=== PATIENT | male | born 1970 | race Caucasian/White ===

== ENCOUNTER 2020-11-05 22:42 | Emergency (ER) | payer SELFPAY ==
--- NOTE | ~2020-11-05 | XR_ITS ---
EXAMINATION: XR hand LT min 3V INDICATION: Left hand and third finger pain TECHNIQUE: Three views of the left hand are obtained on four radiographs. COMPARISON: 05/10/2019 FINDINGS: There is no fracture, dislocation, or subluxation. The bones and joint spaces are normal. T here is mild soft tissue swelling of the third finger. IMPRESSION: 1. Soft tissue swelling of the third finger without underlying osseous abnormality identified. Reviewed, dictated and finalized at location [facility] [employer] [facility] IMPRESSION: 1. Soft tissue swelling of the third finger without underlying osseous abnormal ity identified.
[2020-11-05 22:48] VITALS: BP 145/95; PULSE 88; RESP 16; TEMP 36.8; O2SAT 97
--- NOTE | 2020-11-06 01:27 | ED.GENADULT ---
HPI - General Adult General Chief complaint: Unspecified Stated complaint: Multiple complaints Time Seen by Provider: 11/05/20 23:13 History of Present Illness HPI narrative: Patient is a 50-year-old male who presents ER with 2 concerns. First concern is that he has an injury to his left third digit that prevents him from making a full fist. He has a scab over his hand and he reports he scraped it on something several days ago. There is no redness or drainage. No fevers or chills or sweats. No lymphangitic streaking. He also reports that he is concerned that he may have parasites that are coming out of his eyes. He notes this over the medial portion of his eyes. Has not had this issue before. Denies drug use. Related Data Allergies Allergy/AdvReac Type Severity Reaction Status Date / Time Penicillins Allergy Unknown Unknown Verified 05/19/19 14:02 Review of Systems Review of Systems: All systems reviewed & are unremarkable except as noted in HPI and below Constitutional: Constitutional: Denies chills and Denies fever(s) Eyes: Eyes: Denies change in vision, Denies dry eyes and Denies itchy eyes Musculoskeletal: Musculoskeletal: Denies arthralgias and Denies joint swelling Comments: Decreased range of motion left third digit. PMFSH Past Medical History Medical History (Updated 11/06/20 @ 01:32 by Dennis Barnett MD) Healthy adult male Surgical History Surgical History (Updated 11/06/20 @ 01:29 by Dennis Barnett MD) S/P foot surgery, left Social History Social History Smoking status: Current every day smoker Alcohol intake: never Exam Narrative: Exam Narrative: GENERAL: Well-appearing, well-nourished, and in no acute distress. HEAD: Normocephalic, atraumatic. EYES: PERRL and EOMI. Normal conjunctiva. EXTREMITIES: Focused assessment of the left hand reveals a scab over the PIP joint of the third digit. Large callus over the palmar aspect of the same finger. No redness or streaking. No drainage or warmth. SKIN: Warm, dry, no rash. NEURO: Alert and oriented x3. PSYCH: Normal mood and affect. Course Course Emergency Course: Suspect patient thinks parasites are coming out of his tear ducts which appear normal. Seems to have normal mentation outside of this. No evidence of infection no evidence of trauma on x-ray. Suspect limited range of motion is due to large callus and scabbing of the finger. Vital Signs Vital signs: Vital Signs Temperature 98.2 F 11/05/20 22:48 Pulse Rate 88 11/05/20 22:48 Respiratory Rate 16 11/05/20 22:48 Blood Pressure 145/95 H 11/05/20 22:48 Pulse Oximetry 97 11/05/20 22:48 Temperature 98.2 F 11/05/20 22:48 Pulse Rate 88 11/05/20 22:48 Respiratory Rate 16 11/05/20 22:48 Blood Pressure 145/95 H 11/05/20 22:48 Pulse Oximetry 97 11/05/20 22:48 Medical Decision Making Vital Signs Vital Signs: Vital Signs Temperature 98.2 F 11/05/20 22:48 Pulse Rate 88 11/05/20 22:48 Respiratory Rate 16 11/05/20 22:48 Blood Pressure 145/95 H 11/05/20 22:48 Pulse Oximetry 97 11/05/20 22:48 Temperature 98.2 F 11/05/20 22:48 Pulse Rate 88 11/05/20 22:48 Respiratory Rate 16 11/05/20 22:48 Blood Pressure 145/95 H 11/05/20 22:48 Pulse Oximetry 97 11/05/20 22:48 Imaging Data My impression: X-ray hand left: Normal. Discharge Plan Discharge Clinical Impression: Finger pain Patient Disposition: Home, Self-Care Condition: Stable Additional Instructions: You appear to have a scab on your finger that is limiting your range of motion. There is no evidence of infection or fracture. Return to ER if you have fever over 100.4 ?F, there is pus draining out of your wound, or you have additional concerns. Follow-up/Referrals: Maxwell Gallardo MD [Physician] - 1 Week PHYSICIAN,LOAN CONSULTANT [Primary Care Provider] -
--- NOTE | 2020-11-06 01:39 | PC.NURSE ---
pt seen at intake desk by this rn. he states hes going out to smoke a cigarette and that he would be back for his d/c papers. this rn informed idalia estevez.
== END 2020-11-06 01:44 | disposition home or self-care (01) ==
PROVIDERS: Emergency Provider Emergency Medicine
DX: M79.645 Pain in left finger(s) (principal); F17.200 Nicotine dependence, unspecified, uncomplicated; L84 Corns and callosities
CPT/HCPCS: 73130; 99283

== ENCOUNTER 2023-01-25 14:33 | Emergency (ER) | payer OTHER, SELFPAY ==
[2023-01-25 14:43] VITALS: BP 112/77; PULSE 82; RESP 12; TEMP 36.5; O2SAT 98
--- NOTE | 2023-01-25 15:26 | ED.SKABFB ---
HPI - Skin/Abscess/Foreign Bdy General Chief complaint: Skin/Abscess/Foreign Body Stated complaint: Rash on Feet Time Seen by Provider: 01/25/23 15:20 Source: patient, RN notes reviewed and old records reviewed Mode of arrival: ambulatory Limitations: no limitations History of Present Illness HPI narrative: 52-year-old male who presents to [facility] with complaints of red rash on his feet that has spread to his arms and hand and face for the past 2-3 days that is itchy. He states also he has lump on right great toe where nail is growing back. 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 Patient states he has applied Neosporin to rash areas. MD complaint: rash Onset (ago): day(s) (2-3 days) Severity: mild Treatments prior to arrival: OTC topical medication Related Data Allergies Allergy/AdvReac Type Severity Reaction Status Date / Time Penicillins Allergy Unknown Unknown Verified 01/25/23 14:35 Review of Systems Review of Systems: CONSTITUTIONAL: Denies fever, chills, or sweats. CARDIOVASCULAR: Denies chest pain, palpitations, or edema. RESPIRATORY: Denies cough or dyspnea.at present time SKIN: Reports red rash to feet that has spread to arms and hands and face some crusting noted to center of some of lesions MUSCULOSKELETAL : Denies joint pain or myalgia. NEUROLOGIC: Denies headache, numbness, or weakness. All systems reviewed & are unremarkable except as noted in HPI and below PMFSH Past Medical History Medical History (Updated 01/28/23 @ 06:23 by Madeline Keen NP) Healthy adult male Surgical History Surgical History (Updated 11/06/20 @ 01:29 by Dennis Barnett MD) S/P foot surgery, left Social History Social History (Updated 01/28/23 @ 06:15 by Madeline Keen NP) Smoking packs per day: 0.5 Smoking cigarettes per day: 10.0 Years smoked: 40 Smoking pack-years: 20.00 Smoking status: Current every day smoker Tobacco type: cigarettes Alcohol intake: current Alcohol use details: weekends Substance use: current Substance use type: marijuana Gender identity (if verbalized by the patient): Male Comments At time of signature, agree with nursing past medical, surgical, social and family history. There is no relevant family history pertinent to the presenting complaint Exam Narrative: GENERAL: Well-appearing, well-nourished, and in no acute distress. HEAD: Normocephalic, atraumatic. EYES: PERRLA, conjunctivae clear, and EOMI. ENT: Mucous membranes moist. Oropharynx without edema, erythema or lesions. NECK: Supple. No lymphadenopathy CHEST: Clear to auscultation. No respiratory distress.SAO2 98% on room air HEART: Regular rate and rhythm. SKIN: Warm, dry.? Patches of red rash on feet arms hand and some on face is itchy, some crusting noted on rashes NEURO:? Alert and oriented x3. PSYCH: Normal mood and affect Course Course Emergency Course: Patient is aware of diagnosis, understands and agrees to treatment plan.? Anticipatory guidance given.? Patient agrees to follow-up as directed and is aware of reasons to seek care at the emergency department. Portions of this record may have been created with voice recognition software Level of Care: Express Care Visit Vital Signs Vital signs: Vital Signs Temperature 36.5 C 01/25/23 14:43 Pulse Rate 82 01/25/23 14:43 Respiratory Rate 12 01/25/23 14:43 Blood Pressure 112/77 01/25/23 14:43 Pulse Oximetry 98 01/25/23 14:43 Oxygen Delivery Room Air 01/25/23 14:43 Temperature 36.5 C 01/25/23 14:43 Pulse Rate 82 01/25/23 14:43 Respiratory Rate 12 01/25/23 14:43 Blood Pressure 112/77 01/25/23 14:43 Pulse Oximetry 98 01/25/23 14:43 Oxygen Delivery Room Air 01/25/23 14:43 Reviewed MDM - Skin/Abscess/Foreign Bdy MDM Narrative Medical decision making narrative: Does
== END 2023-01-25 15:50 | disposition home or self-care (01) ==
PROVIDERS: Emergency Provider Registered Nurse
DX: L25.9 Unspecified contact dermatitis, unspecified cause (principal); F17.210 Nicotine dependence, cigarettes, uncomplicated; F12.90 Cannabis use, unspecified, uncomplicated
CPT/HCPCS: 99213; G0463

== ENCOUNTER 2023-10-07 13:42 | Emergency (ER) | payer OTHER, SELFPAY ==
--- NOTE | 2023-10-07 13:44 | ED.BACK ---
HPI - Back Pain/Injury General Chief Complaint: Back Pain/Injury Stated Complaint: R LOWER BACK PAIN Time Seen by Provider: 10/07/23 13:44 Source: patient Mode of arrival: ambulatory Limitations: no limitations History of Present Illness HPI Narrative: Mr Garcia is a 53 year old male patient presenting to the clinic today with c/o right lower back pain that just started this morning. He reports no known injury. Woke up this morning with back pain. Denies any urinary symptoms. Denies any difficulty walking. States that he is having pain to the right lower back when he is bending forward and changing positions. States the pain is sharp in nature. 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 Denies any saddle anesthesia or numbness or tingling in the groin. Denies any radiation of pain down either leg. Related Data Allergies Allergy/AdvReac Type Severity Reaction Status Date / Time Penicillins Allergy Unknown Unknown Verified 01/25/23 14:35 Review of Systems Review of Systems: Pertinent positives per HPI. Patient denies any fever, chills, rash, headache, visual changes, dizziness, cough, shortness of breath, chest pain, palpitations, nausea, vomiting, diarrhea, constipation, abdominal pain, or any urinary issues. [facility] Past Medical History Medical History Healthy adult male Surgical History Surgical History S/P foot surgery, left Social History Social History Smoking packs per day: 0.5 Smoking cigarettes per day: 10.0 Years smoked: 40 Smoking pack-years: 20.00 Smoking status: Current every day smoker Tobacco type: cigarettes Alcohol intake: current Alcohol use details: weekends Substance use: current Substance use type: marijuana Gender identity (if verbalized by the patient): Male Comments At the time of my signature, I reviewed and agree with the nursing past medical, surgical, social, and family history. There is no relevant family history pertinent to the patient complaint. Exam Narrative: General: Well-developed, well nourished, in no apparent distress Head: Normocephalic, atraumatic. Cardio: Regular rate and rhythm, s1 and s2 normal, no murmur appreciated. Resp: Clear to auscultation bilaterally, no rhonchi, rales, wheezing or rubs. Musculoskeletal: No deformity, tender to palpation to the right lower back, pain with straight leg test on the right side at approximately 60 ?, patellar reflexes 2+ bilaterally, negative foot drop, grossly normal range of motion, bilateral lower muscle strength strong and equal, peripheral pulse strong, no edema, no cyanosis, normal gait and station Course Course Emergency Course: Portions of this record may have been created with voice recognition software. Level of Care: Express Care Visit Vital Signs Vital signs: Vital signs reviewed MDM - Back Pain/Injury MDM Narrative Medical decision making narrative: At the time of visit patient is resting comfortably on the exam table. Patient appears to be nontoxic. Plan: I suspect patient has right to lower back strain. Prescription for Medrol Dosepak and Flexeril was sent to the pharmacy. Sedation precautions were reviewed with the patient. Supportive measures were discussed with the patient and they voiced understanding discharge instructions and agrees to treatment plan. Return precautions reviewed Differential Diagnosis Differential diagnosis: Likely lumbar radiculopathy, sciatica, strain of lumbar region, pyelonephritis and discitis Discharge Plan Discharge Clinical Impression: Low back pain Qualifiers: Chronicity: acute Back pain laterality: right Sciatica presence: without sciatica Qualified Code(s): M54.50 -
[2023-10-07 13:53] VITALS: BP 109/81; PULSE 88; RESP 18; TEMP 36.8; O2SAT 100
== END 2023-10-07 14:02 | disposition home or self-care (01) ==
PROVIDERS: Emergency Provider Nurse Practitioner Family
DX: M54.50 Low back pain, unspecified (principal); F17.210 Nicotine dependence, cigarettes, uncomplicated; F12.90 Cannabis use, unspecified, uncomplicated
CPT/HCPCS: 99213; G0463